=== PATIENT | male | born 1990 | race Hispanic/Latino ===

== ENCOUNTER → 2018-10-09 | Outpatient (CLI) | payer OTHER ==
--- NOTE | 2018-10-09 08:08 | REP ---
Clinical: Flank pain with history of gout. Technique: Axial noncontrast images from the lung bases to the pubic symphysis with coronal and sagittal re-formations. Comparison: None. Findings: Lung bases are clear. Visualized heart and pericardium normal. Liver, spleen, pancreas, collapsed gallbladder, bilateral adrenal glands and kidneys are normal. No perinephric stranding, hydroureteronephrosis, nephroureterolithiasis or obvious urinary tract lesion is appreciated. The enteric system is without obstruction or acute inflammatory process. Normal terminal ileum and appendix identified in the right lower quadrant. Few scattered sigmoid diverticula noted without acute diverticulitis. Pelvis demonstrates normal bladder and age appropriate prostate/seminal vesicles. Calcifications in the right hemipelvis are consistent with phleboliths. No ascites. No free air. No adenopathy. Abdominal aorta without aneurysm. Musculoskeletal structures without focal osseous abnormality. Impression: 1. Normal noncontrast CT of the abdomen and pelvis. Electronically Signed by Deo Alcantar MD 10/09/2018 07:59 A
== END ==
LOC: M RAD 06:37
DX: Z87.39 Personal history of other diseases of the musculoskeletal system and connective tissue (principal)

== ENCOUNTER → 2019-11-14 | Outpatient (REF) | payer OTHER ==
[2019-11-14 12:41] LABS: SEMEN APPEARANCE OPAQUE (OPAQUE); SEMEN VISCOSITY LIQUID (LIQUID); SEMEN VOLUME 3.1 ml (2.0-5.0); WBC CONCENTRATION <=1 M/ml (<=1 M/ml)
== END ==
LOC: M LAB REF 11:44
PROVIDERS: ATTEND Emergency Medicine
DX: Z98.52 Vasectomy status (principal)